=== PATIENT | male | born 1960 | race Caucasian/White ===

== ENCOUNTER 2016-11-26 10:48 | Emergency (ER) | payer OTHER ==
[~2016-11-26] VITALS: Ht 170.2 cm; Wt 107.5 kg
[~2016-11-26 10:48] MED LIST: ALLOPURINOL300 MG PO; ASPIRIN EC325 MG PO; ATORVASTATIN CA40 MG PO; CELECOXIB200 MG PO; DICLOFENAC SODI75 MG PO; ENDOCET 5-3251 EACH PO; IRON325 M1 PO; LO-DOSE ASPIRIN81 M1 PO; LOSARTAN POTAS100 MG PO; OXYCONTIN10 MG PO; PERCOCET 10/1 TABLET PO; PERCOCET 5/31 TABLET PO
[2016-11-26 11:57] VITALS: BP 140/83
== END 2016-11-26 12:16 | disposition home or self-care (01) ==
LOC: EME 10:48
DX: S83.91XA Sprain of unspecified site of right knee, initial encounter (principal); W18.09XA Striking against other object with subsequent fall, initial encounter; G89.29 Other chronic pain
CPT/HCPCS: 73564; 99281; 99284

== ENCOUNTER 2016-12-16 16:10 | Emergency (ER) | payer OTHER ==
[~2016-12-16] VITALS: Ht 170.2 cm; Wt 106.8 kg
[2016-12-16] MEDS ORDERED: NAPROSYN500 MG PO (18:31)
[2016-12-16] MEDS ORDERED: NORCO 5/3251 TABLET PO (18:31)
[2016-12-16 18:43] VITALS: BP 138/79
== END 2016-12-16 18:51 | disposition home or self-care (01) ==
LOC: EME 16:10
DX: S05.01XA Injury of conjunctiva and corneal abrasion without foreign body, right eye, initial encounter (principal); X58.XXXA Exposure to other specified factors, initial encounter; Y93.89 Activity, other specified
CPT/HCPCS: 99281; 99284